=== PATIENT | female | born 1945 | race African-American/Black ===

== ENCOUNTER 2017-05-21 13:12 | Emergency (ER) | payer MEDICARE, OTHER ==
[2017-05-21 13:30] VITALS: BP 150/72; PULSE 80; TEMP 98.2; BMI 30.1
--- NOTE | 2017-05-21 14:04 | PDOC ---
Attending Attestation - Resident Resident Name: Pool Serrano - HPI HPI: 05/21/17 15:29 Pt presents to the ED complaining of a three day history of epigastric discomfort and questionable shortness of breath. - Physicial Exam PE: 05/21/17 15:30 Agree with above exam. Abdomen is non tender on my exam. - Medical Decision Making 05/21/17 15:30 Pt presents to the ED complaining of abdominal pain. Differential includes ACS , obstruction, biliary disease, less likely mesenteric ischemia. Will check labs and EKG and reassess.
--- NOTE | 2017-05-21 14:20 | PDOC ---
History of Present Illness - General Chief Complaint: Chest Pain Stated Complaint: CHEST/ABD PAIN/SOB Time Seen by Provider: 05/21/17 13:51 - History of Present Illness Initial Comments: 05/21/17 14:39 Ms. Obrien is a 72 year old female with a significant past medical history of DM, HTN, Asthma, glaucoma, and back surgery who presents to the emergency department with a 3-4 day history of waking up with abdominal pain, tightness radiating up to her chest, and feelings of fullness with some small shortness of breath. She also reports that she has been intermittently taking senna for constipation with some relief. The patient denies headache and dizziness. Denies fever, chills, nausea, vomit, and diarrhea. Denies dysuria, frequency, urgency and hematuria. Allergies: NKDA Past surgical history: Back Surgery Past History - Past Medical History Allergies/Adverse Reactions: Allergies Allergy/AdvReac Type Severity Reaction Status Date / Time No Known Allergies Allergy Verified 05/21/17 13:26 Home Medications: Ambulatory Orders Albuterol 0.083% Nebulizer Jenn [Ventolin 0.083% Nebulizer Soln -] 1 neb NEB Q4H #30 vial 07/27/14 Albuterol Sulfate Inhaler - [Ventolin HFA Inhaler -] 1 - 2 inh PO Q4H 07/27/14 Budesonide/Formeterol Fumarate [SYMBICORT 80/4.5mcg -] 1 inh PO ASDIR 07/27/14 Docusate Sodium [Colace -] 100 mg PO DAILY #30 capsule 05/21/17 Glimepiride [Amaryl -] 4 mg PO DAILY@0700 05/21/17 Magnesium 200 mg PO DAILY 05/21/17 Meloxicam 7.5 mg PO DAILY 05/21/17 Nebivolol HCl [Bystolic] 3 mg PO DAILY 05/21/17 Olmesartan Medoxomil 40 mg PO DAILY 05/21/17 Asthma: Yes Diabetes: Yes HTN: Yes Hypercholesterolemia: Yes - Psycho/Social/Smoking Cessation Hx Anxiety: No Suicidal Ideation: No Smoking History: Never smoked Have you smoked in the past 12 months: No Information on smoking cessation initiated: No Hx Alcohol Use: No Drug/Substance Use Hx: No Substance Use Type: None Review of Systems - Review of Systems Comments:: 05/21/17 14:39 GENERAL/CONSTITUTIONAL: No fever or chills. No weakness. HEAD, EYES, EARS, NOSE AND THROAT: No change in vision. No ear pain or discharge. No sore throat. CARDIOVASCULAR: +Some chest tightness/shortness of breath upon waking up RESPIRATORY: No cough, wheezing, or hemoptysis. GASTROINTESTINAL: +Constipation intermittently. Last BM was yester. No nausea, vomiting or diarrhea. GENITOURINARY: No dysuria, frequency, or change in urination. MUSCULOSKELETAL: +Longstanding back spasms/stiffness following back surgery in november. She reports heaviness in her legs since this time as well. No joint or muscle swelling or pain. SKIN: No rash NEUROLOGIC: No headache, vertigo, loss of consciousness, or change in strength/ sensation. ENDOCRINE: No increased thirst. No abnormal weight change HEMATOLOGIC/LYMPHATIC: No anemia, easy bleeding, or history of blood clots. ALLERGIC/IMMUNOLOGIC: No hives or skin allergy. *Physical Exam - Vital Signs Last Vital Signs Temp Pulse Resp BP Pulse Ox 98.2 F 80 18 150/72 100 05/21/17 13:26 05/21/17 13:26 05/21/17 13:26 05/21/17 13:26 05/21/17 13:26 - Physical Exam Comments: 05/21/17 14:39 GENERAL: Awake, alert, and fully oriented, in no acute distress HEAD: No signs of trauma, normocephalic, atraumatic EYES: PERRLA, EOMI, sclera anicteric, conjunctiva clear ENT: Auricles normal inspection, hearing grossly normal, nares patent, oropharynx clear without exudates. Moist mucosa NECK: Normal ROM, supple, no lymphadenopathy, JVD, or masses LUNGS: +Diffuse wheezes. No distress, speaks full sentences. HEART: Regular rate and rhythm, normal S1 and S2, no murmurs, rubs or gallops, peripheral pulses normal and equal bilaterally. ABDOMEN: +Abdomen feels diffusely full. Soft, nontender, normoactive bowel sounds. No guarding, no rebound. No masses EXTREMITIES: Normal inspection, Normal range of motion, no edema. No clubbing or cyanosis. NEUROLOGICAL: Cranial nerves II through XII grossly intact. Normal speech, normal gait, no focal sensorimotor deficits SKIN: Warm, Dry, normal turgor, no rashes or lesions noted. ED Treatment Course - LABORATORY CBC & Chemistry Diagram: 05/21/17 14:34 05/21/17 14:34 Medical Decision Making - Medical Decision Making 05/21/17 14:45 Ms. Obrien presents with family for various non-specific complaints over the last few days. She is primarily concerned with a feeling of "fullness" in her abdomen. Suspect constipation as cause of symptoms. KUB/CMP/CBC/EKG/Trop ordered. Nebulizer also ordered for lung wheezes. Will treat for constipation if KUB confirms and EKG/Trop are negative. 05/21/17 16:08 KUB confirms retained stool without obstruction. Trop/EKG negative for acute pathology, patient breathing well after nebulizer. Counseled on adding fiber to diet and other constipation alleviators. Will d/c to home w/ colace RX. *DC/Admit/Observation/Transfer Diagnosis at time of Disposition: Constipation Qualifiers: Constipation type: unspecified constipation type Qualified Code(s): K59.00 - Constipation, unspecified - Discharge Dispostion Disposition: HOME - Referrals Referrals: Samantha Malave MD [Primary Care Provider] - - Patient Instructions Printed Discharge Instructions: DI for Constipation Additional Instructions: Please return if any new pain, fever, or other concerning symptoms. - Attestations Physician Attestion: 05/21/17 16:10 I, Dr. Pool Serrano, attest that this document has been prepared under my direction and personally reviewed by me in its entirety. I further attest, that it accurately reflects all work, treatment, procedures and medical decision -making performed by me.
[2017-05-21] MEDS ORDERED: ALBUTEROL SO4 2.5/IPRATROPIUM 0.5 INH SOL 3 ML VIAL.NEB. NEB ONE ×2 (14:38→15:31)
[2017-05-21 14:59] LABS: BASOPHIL 1.3 % (0-2.0); EOSINOPHIL 5.8 % (0-4.5); MCH 31.2 pg (25.7-33.7); MCHC 32.8 g/dl (32.0-36.0); MEAN PLT VOLUME 8.5 fl (7.5-11.1); NEUTROPHILS 46.5 % (42.8-82.8); PLATELET COUNT 230 K/MM3 (134-434); RDW 13.2 % (11.6-15.6); WHITE BLOOD COUNT 7.4 K/mm3 (4.0-10.0)
[2017-05-21 15:19] LABS: ALBUMIN 3.9 g/dl (3.4-5.0); ANION GAP 8 (8-16); BILIRUBIN,TOTAL 0.4 mg/dL (0.2-1.0); CALCIUM 9.4 mg/dL (8.5-10.1); CO2 28 mmol/L (21-32); CREATININE 0.7 mg/dL (0.55-1.02); GLUCOSE,RANDOM 109 mg/dL (74-106); SGOT/AST 11 U/L (15-37); SGPT/ALT 16 U/L (12-78); TOT PROT 7.7 g/dl (6.4-8.2)
[2017-05-21 15:22] LABS: ALK PHOS 79 U/L (45-117); CPK 117 IU/L (26-192); TROPONIN I < 0.02 ng/ml (0.00-0.05)
[2017-05-21 15:25] LABS: URINE APPEARANCE SLCLOUDY; URINE BILIRUBIN NEGATIVE (NEGATIVE); URINE BLOOD NEGATIVE (NEGATIVE); URINE COLOR YELLOW; URINE GLUCOSE (UA) NEGATIVE (NEGATIVE); URINE KETONE NEGATIVE (NEGATIVE); URINE LEUK ESTERASE NEGATIVE (NEGATIVE); URINE NITRITE NEGATIVE (NEGATIVE); URINE PROTEIN NEGATIVE (NEGATIVE); URINE UROBILINOGEN NEGATIVE mg/dL (0.2-1.0)
--- NOTE | 2017-05-22 13:33 | EKG ---
Test Reason : Blood Pressure : / mmHG Vent. Rate : 082 BPM Atrial Rate : 082 BPM P-R Int : 276 ms QRS Dur : 078 ms QT Int : 340 ms P-R-T Axes : 063 -11 047 degrees QTc Int : 397 ms SINUS RHYTHM WITH 1ST DEGREE A-V BLOCK POOR R WAVE PROGRESSION ABNORMAL ECG WHEN COMPARED WITH ECG OF 30-DEC-2005 11:34, NO SIGNIFICANT CHANGE WAS FOUND Confirmed by SANDRINE ANGULO, ARCELIA ([id number]) on 05/22/2017 1:32:49 PM Referred By: Confirmed By:ARCELIA DELUCA MD
== END 2017-05-21 16:37 | disposition home or self-care (01) ==
LOC: JER 13:12
PROC: 3E0F7GC Introduction of Other Therapeutic Substance into Respiratory Tract, Via Natural or Artificial Opening (ICD-10-PCS; principal; 2017-05-21)
DX: K59.00 Constipation, unspecified (principal); J45.909 Unspecified asthma, uncomplicated; E11.9 Type 2 diabetes mellitus without complications; I10 Essential (primary) hypertension; E78.00 Pure hypercholesterolemia, unspecified
CPT/HCPCS: 36415; 74000-TC; 80053; 81003; 84484; 85025; 93005; 93010; 99284-25

== ENCOUNTER 2021-03-21 15:08 | Emergency (ER) | payer OTHER ==
[2021-03-21 15:15] VITALS: BMI 32.9
[2021-03-21] MEDS ORDERED: ACETAMINOPHEN 1000 MG/100 ML VIAL (NON FORMULARY) IVPB ONE (15:57)
[2021-03-21] MEDS ORDERED: ACETAMINOPHEN INJECTION 100 ML IVPB ONE (16:21)
[2021-03-21 16:41] LABS: EOS % 4.5 % (0-4.5); HEMATOCRIT 36.6 % (32.4-45.2); HEMOGLOBIN 12.5 GM/dL (10.7-15.3); LYMPH % 46.9 % (8-40); MCH 31.6 pg (25.7-33.7); MCHC 34.1 g/dl (32.0-36.0); MEAN CELL VOLUME 92.7 fl (80-96); MEAN PLT VOLUME 9.3 fl (7.5-11.1); MONO % 10.8 % (3.8-10.2); NEUT % 36.8 % (42.8-82.8); PLATELET COUNT 275 K/MM3 (134-434); RBC 3.95 M/mm3 (3.60-5.2); RDW 14.2 % (11.6-15.6); WHITE BLOOD COUNT 7.5 K/mm3 (4.0-10.0)
[2021-03-21 17:28] LABS: CHLORIDE 103 mmol/L (98-107); SODIUM 139 mmol/L (136-145)
[2021-03-21 17:30] LABS: CALCIUM 9.7 mg/dL (8.5-10.1)
[2021-03-21 17:31] LABS: ALBUMIN 3.9 g/dl (3.4-5.0); ANION GAP 5 MMOL/L (8-16); BLOOD UREA NITROGEN 20.1 mg/dL (7-18); CO2 31 mmol/L (21-32); GLUCOSE,RANDOM 93 mg/dL (74-106); LIPASE 62 U/L (73-393)
[2021-03-21 17:34] LABS: CREATININE 0.9 mg/dL (0.55-1.3); SGOT/AST 19 U/L (15-37); SGPT/ALT 21 U/L (13-61)
[2021-03-21 17:36] LABS: BILIRUBIN,TOTAL 0.6 mg/dL (0.2-1); TOT PROT 7.8 g/dl (6.4-8.2)
[2021-03-21 17:37] LABS: ALK PHOS 70 U/L (45-117)
[2021-03-21 18:11] LABS: PH,URINE 6.5 (5.0-8.0); URINE APPEARANCE CLEAR; URINE BILIRUBIN NEGATIVE (NEGATIVE); URINE COLOR YELLOW; URINE GLUCOSE (UA) NEGATIVE (NEGATIVE); URINE KETONE NEGATIVE (NEGATIVE); URINE LEUK ESTERASE NEGATIVE (NEGATIVE); URINE NITRITE NEGATIVE (NEGATIVE); URINE PROTEIN NEGATIVE (NEGATIVE); URINE UROBILINOGEN 0.2 mg/dL (0.2-1.0)
[2021-03-21 21:54] VITALS: BP 118/85; PULSE 65
== END 2021-03-21 21:56 | disposition home or self-care (01) ==
LOC: JER 15:08
PROC: 3E0333Z Introduction of Anti-inflammatory into Peripheral Vein, Percutaneous Approach (ICD-10-PCS; principal; 2021-03-21)
DX: R10.31 Right lower quadrant pain (principal)
CPT/HCPCS: 36415; 71045-TC-FY; 74177-TC; 76705-TC; 80053; 81003; 82962; 83690; 84484; 85025; 87086; 93005; 93010; 96374; 99285-25; J0131